=== PATIENT | female | born 1960 | race Hispanic/Latino ===

== ENCOUNTER 2020-04-30 08:26 | Outpatient (CLI) | payer BC, SELFPAY ==
--- NOTE | ~2020-04-30 | MM_ITS ---
EXAMINATION: MM screening [facility] BI w john HISTORY: Screening mammogram TECHNIQUE: Craniocaudal and mediolateral oblique 3-D tomosynthesis images were obtained and synthetic 2-D images were generated. CAD analysis was submitted and interpreted. COMPARISON: 07/24/2018, 11/04/2014, 08/07/2013 BREAST PARENCHYMAL COMPOSITION: The breasts are almost entirely fatty. FINDINGS: There is no evidence of suspicious mass, calcification, or architectural distortion to sugg est malignancy in either breast. There has been no suspicious interval change. IMPRESSION: 1. No mammographic evidence of malignancy. 2. Recommend routine screening mammography in one year. BI-RADS Category 1: Negative Reviewed, dictated and finalized at location A. H CUTTER PINION
== END 2020-04-30 08:27 | disposition home or self-care (01) ==
LOC: ANHIMG 08:29
PROVIDERS: PCP Emergency Medicine; Visit Provider Emergency Medicine
DX: Z12.31 Encounter for screening mammogram for malignant neoplasm of breast (principal)
CPT/HCPCS: 77063; 77067

== ENCOUNTER 2021-10-25 14:56 | Outpatient (CLI) | payer BC, SELFPAY ==
--- NOTE | ~2021-10-25 | US_ITS ---
US venous doppler LE RT DATE: 10/25/2021 15:26 INDICATION: Right leg pain TECHNIQUE: Real-time and color flow imaging and Doppler analysis COMPARISON: None FINDINGS: There is spontaneous and phasic flow and normal augmentation and color flow signal and norm al compression of the right common femoral and femoral veins. Intraluminal thrombus with incomplete compression of the right popliteal and peroneal veins. The post erior tibial veins are patent. Thrombus is identified in the soleus veins. The greater saphenous vein is patent. IMPRESSION: Thrombus is identified in the popliteal, peroneal and soleus veins Dr. Mancera telephoned the report to Jessica in Dr. Garcia' office on 10/25/2021 at 1530 hours. Reviewed, dictated and finalized at Location A. Reviewed, dictated and finalized at location A. IMPRESSION: Thrombus is identified in the popliteal, peroneal and soleus veins Dr. Mancera telephoned the report to Jessica Garcia' office on 10/25/2021 at 1530 hours.
== END 2021-10-25 14:57 | disposition home or self-care (01) ==
PROVIDERS: PCP Emergency Medicine; Visit Provider Emergency Medicine
DX: I82.451 Acute embolism and thrombosis of right peroneal vein (principal); I82.431 Acute embolism and thrombosis of right popliteal vein; I82.461 Acute embolism and thrombosis of right calf muscular vein
CPT/HCPCS: 93971

== ENCOUNTER 2021-11-07 08:15 | Outpatient (CLI) | payer BC, SELFPAY ==
--- NOTE | ~2021-11-07 | DEXA_ITS ---
Bone Density Report Name: ERASMO REYNOSO Age: 60 Sex: Female Ethnicity: Date of : 1960 Indication: postmenopausal; osteopenia; Referring Provider: FLORINDA BROOKS Study: Bone densitometry was performed. Exam Date: November 07, 2021 Accession number: [id number] Bone Density: Region BMD T-score Z-score Classification AP Spine(L1-L4) 0.871 -1.6 0.0 Osteopenia Femoral Neck (Left) 0.618 -2.1 -0.8 Osteopenia Total Hip (Left) 0.813 -1.1 -0.1 Osteopenia Femoral Neck (Right) 0.631 -2.0 -0.7 Osteopenia Total Hip (Right) 0.839 -0.8 0.1 Normal Total Hip Mean 0.826 -1.0 0.0 Normal World Health Organization criteria for BMD impression classify patients as: Normal (T-score at or above -1.0), Osteopenia (T-score between -1.0 and -2.5), or Osteoporosis (T-score at or below -2.5). 10-year Fracture Risk(1): Major Osteoporotic Fracture 5.5% Hip Fracture 0.7% Reported Risk Factors: [place] (), Neck BMD=0.618, BMI=32.0 (1) FRAX(R) Version 3.08. Fracture probability calculated for an untreated patient. Fracture probability may be lower if the patient has received treatment. Previous Exams: Region Exam Age BMD T-score BMD Change BMD Change Date g/cm2 vs Baseline vs Previous AP Spine (L1-L4) 11/07/2021 60 0.871 -1.6 -0.026 (-2.9%) -0.026 (-2.9%) 11/04/2014 53 0.897 -1.4 Total Hip(Left) 11/07/2021 60 0.813 -1.1 -0.119 (-12.7% -0.119 (-12.7% 11/04/2014 53 0.932 -0.1 Total Hip(Right) 11/07/2021 60 0.839 -0.8 -0.125 (-13.0% -0.125 (-13.0% 11/04/2014 53 0.964 0.2 *Denotes significance at 95% confidence level, LSC for AP Spine = 0.022 g/cm2, LSC for Total Hip = 0.027 g/cm2 Clinical Information Provided by Patient: Has used the following medications: Vitamin D Patient maximum height was 62 Menopause Age: 38 Onset of menses at age 10 Number of children 0 Impression: UNAPPROVED The patient has low bone mass, based on the Left Femoral Neck T-score. The patient has an estimated ten-year risk of hip fracture of 0.7% and an estimated ten-year risk of major fracture of 5.5%, based on the WHO FRAX algorithm. The BMD for the AP Spine (L1-L4) decreased, changing by -2.9% since the last DXA exam. The BMD for the Total Hip(Left) decreased, changing by -12.7% since the last DXA exam. The BMD for the Total Hip(Right) decreased, changing by -13.0% since the last DXA exam. Discussion: UNAPPROVED BONE DENSITY IS LOW
--- NOTE | ~2021-11-07 | MM_ITS ---
EXAMINATION: MM screening [facility] HISTORY: Screening TECHNIQUE: Craniocaudal and mediolateral oblique 3-D tomosynthesis images were obtained and synthetic 2-D images were generated. CAD analysis was submitted and interpreted. COMPARISON: Comparison to multiple prior studies sequentially, with oldest reviewed study dated 07/08. BREAST PARENCHYMAL COMPOSITION: The breasts are almost entirely fatty. FINDINGS: There is no evidence of suspicious mass, calcification, or architectural distortion to sugg est malignancy in either breast. There has been no suspicious interval change. IMPRESSION: 1. No mammographic evidence of malignancy. 2. Recommend routine screening mammography in one year. BI-RADS Category 1: Negative Reviewed, dictated and finalized at location A.
== END 2021-11-07 08:16 | disposition home or self-care (01) ==
LOC: ANHIMG 08:16
PROVIDERS: PCP Emergency Medicine; Visit Provider Student in an Organized Health Care Education/Training Program
DX: Z12.31 Encounter for screening mammogram for malignant neoplasm of breast (principal); Z78.0 Asymptomatic menopausal state; M85.88 Other specified disorders of bone density and structure, other site; M85.852 Other specified disorders of bone density and structure, left thigh; M85.851 Other specified disorders of bone density and structure, right thigh
CPT/HCPCS: 77063; 77067; 77080

== ENCOUNTER 2022-04-25 15:45 | Outpatient (CLI) | payer BC, SELFPAY ==
--- NOTE | ~2022-04-25 | US_ITS ---
EXAMINATION: US venous doppler LE RT DATE: 04/25/2022 16:26 INDICATION: I82.409 - Acute embolism and thrombosis of unspecified de... . TECHNIQUE: Grayscale images without and with compression and Doppler images of the right lower extrem ity veins were obtained. COMPARISON: 10/25/2021 FINDINGS: The right common femoral vein, profunda (deep) femoral vein, femoral vein, popliteal vein, peroneal v ein, posterior tibial veins, gastrocnemius vein, and greater saphenous vein are patent. IMPRESSION: 1. Patent right lower extremity veins. No evidence of deep venous thrombosis. Reviewed, dictated and finalized at location K. SKINNER
== END 2022-04-25 15:46 | disposition home or self-care (01) ==
PROVIDERS: PCP Emergency Medicine; Visit Provider Emergency Medicine
DX: I82.409 Acute embolism and thrombosis of unspecified deep veins of unspecified lower extremity (principal); M79.606 Pain in leg, unspecified; R60.9 Edema, unspecified
CPT/HCPCS: 93971

== ENCOUNTER 2022-12-07 07:53 | Outpatient (CLI) | payer BC, SELFPAY ==
--- NOTE | ~2022-12-07 | MM_ITS ---
EXAMINATION: MM screening [facility] HISTORY: Screening TECHNIQUE: Craniocaudal and mediolateral oblique 3-D tomosynthesis images were obtained and synthetic 2-D images were generated. CAD analysis was submitted and interpreted. COMPARISON: Comparison to multiple prior studies sequentially, with oldest reviewed study dated 08/07. BREAST PARENCHYMAL COMPOSITION: Breast composition is almost entirely fatty FINDINGS: There is no evidence of suspicious mass, calcification, or architectural distortion to sugg est malignancy in either breast. There has been no suspicious interval change. IMPRESSION: 1. No mammographic evidence of malignancy. 2. Recommend routine screening mammography in one year. BI-RADS Category 1: Negative Reviewed, dictated and finalized at location A.
== END 2022-12-07 07:54 | disposition home or self-care (01) ==
PROVIDERS: PCP Emergency Medicine; Visit Provider Emergency Medicine
DX: Z12.31 Encounter for screening mammogram for malignant neoplasm of breast (principal)
CPT/HCPCS: 77063; 77067

== ENCOUNTER 2023-02-21 11:57 | Outpatient (CLI) | payer BC, SELFPAY ==
--- NOTE | ~2023-02-21 | US_ITS ---
EXAMINATION:US venous doppler LE LT INDICATION:Left leg pain TECHNIQUE: Multiple grayscale, color flow and Doppler images of the left lower extremity deep venous systems were obtained and reviewed. COMPARISON:No prior studies for comparison. FINDINGS: The common femoral, superficial femoral and popliteal veins demonstrate normal respiratory variation, augmentation and compressibility. Color flow is also seen within the posterior tibial, pe roneal, greater saphenous and profunda veins. IMPRESSION: 1: No lower extremity deep venous thrombosis. Reviewed, dictated and finalized at location B.
== END 2023-02-21 11:58 | disposition home or self-care (01) ==
PROVIDERS: PCP Emergency Medicine; Visit Provider Emergency Medicine
DX: M62.89 Other specified disorders of muscle (principal)
CPT/HCPCS: 93971

== ENCOUNTER 2024-02-11 07:28 | Outpatient (CLI) | payer BC, SELFPAY ==
--- NOTE | ~2024-02-11 | MM_ITS ---
EXAMINATION: MM screening [facility] HISTORY: Screening TECHNIQUE: Craniocaudal and mediolateral oblique 3-D tomosynthesis images were obtained and synthetic 2-D images were generated. CAD analysis was submitted and interpreted. COMPARISON: Comparison to multiple prior studies sequentially, with oldest reviewed study dated 11/04. BREAST PARENCHYMAL COMPOSITION: Not Dense: The breasts are almost entirely fatty. FINDINGS: There is no evidence of suspicious mass, calcification, or architectural distortion to sugg est malignancy in either breast. There has been no suspicious interval change. IMPRESSION: 1. No mammographic evidence of malignancy. 2. Recommend routine screening mammography in one year. BI-RADS Category 1: Negative Reviewed, dictated and finalized at location B.
== END 2024-02-11 07:29 | disposition home or self-care (01) ==
PROVIDERS: PCP Emergency Medicine; Visit Provider Nurse Practitioner Family
DX: Z12.31 Encounter for screening mammogram for malignant neoplasm of breast (principal)
CPT/HCPCS: 77063; 77067

== ENCOUNTER 2024-02-25 09:20 | Outpatient (CLI) | payer BC, SELFPAY ==
--- NOTE | ~2024-02-25 | MR_ITS ---
MRI of the right ankle Clinical history: History tibial tendon dysfunction Technique: Coronal proton-density and proton-density fat-sat images, axial proton-density and proton- density fat-sat images, and sagittal proton-density and proton-density fat-sat images were acquired. Findings: Syndesmotic ligaments are intact. Anterior and posterior talofibular ligaments, and calcane ofibular ligament are intact. Deltoid ligament intact. There is advanced hypertrophic partial tearing of the tibialis posterior tendon, with thickening, inc reased signal, and partial tearing. Flexor hallucis longus and flexor digitorum longus tendons are in tact. Peroneal tendons, anterior extensor tendons, and Achilles tendon are intact. There is orthopedic hardware at the anterior subtalar facet region. Probable focal high-grade chondro malacia at the lateral corner of the talar dome with developing osteochondral lesion in this region. There is focal subchondral cystic change in the medial malleolus with mild amorphous marrow edema. Po ssible pes planus deformity. Plantar fascia intact. No soft tissue mass or fluid collection evident.. Impression: Severe hypertrophic type partial tearing of the tibial posterior tendon, as detailed above. Possible pes planus deformity. Correlate clinically. Orthopedic hardware at the anterior subtalar facet region. Correlate with surgical history. Developing osteochondral lesion of the lateral corner of the talar dome. Reviewed, dictated and finalized at [facility]. POT OPERATOR Impression: Severe hypertrophic type partial tearing of the tibial posterior tendon, as det rachana above. Possible pes planus deformity. Correlate clinically. Orthopedic hardware at the anterior subtalar facet region. Correlate with surgi rosita history. Developing osteochondral lesion of the lateral corner of the talar dome.
== END 2024-02-25 09:21 | disposition home or self-care (01) ==
PROVIDERS: PCP Emergency Medicine; Visit Provider Podiatrist Foot & Ankle Surgery
DX: R68.89 Other general symptoms and signs (principal); R93.6 Abnormal findings on diagnostic imaging of limbs
CPT/HCPCS: 73721

== ENCOUNTER 2024-03-17 09:05 | Outpatient (CLI) | payer BC, SELFPAY ==
--- NOTE | ~2024-03-17 | DEXA_ITS ---
Bone Density Report Name: ERASMO REYNOSO Age: 63 Sex: Female Ethnicity: Date of : 1960 Indication: osteopenia; Referring Provider: NAHOMI NORMAN Study: Bone densitometry was performed. Exam Date: March 17, 2024 Accession number: [id number] Bone Density: Region BMD T-score Z-score Classification AP Spine(L1-L4) 0.746 -2.7 -1.0 Osteoporosis Femoral Neck (Left) 0.561 -2.6 -1.2 Osteoporosis Total Hip (Left) 0.770 -1.4 -0.3 Osteopenia Femoral Neck (Right) 0.595 -2.3 -0.9 Osteopenia Total Hip (Right) 0.815 -1.0 0.0 Normal Total Hip Mean 0.793 -1.2 -0.2 Osteopenia World Health Organization criteria for BMD impression classify patients as: Normal (T-score at or above -1.0), Osteopenia (T-score between -1.0 and -2.5), or Osteoporosis (T-score at or below -2.5). 10-year Fracture Risk: FRAX not reported because: Some T-score for Spine Total or Hip Total or Femoral Neck at or below -2.5 Previous Exams: Region Exam Age BMD T-score BMD Change BMD Change Date g/cm2 vs Baseline vs Previous AP Spine (L1-L4) 03/17/2024 63 0.746 -2.7 -0.151 (-16.8% -0.125 (-14.4% 11/07/2021 60 0.871 -1.6 -0.026 (-2.9%) -0.026 (-2.9%) 11/04/2014 53 0.897 -1.4 Total Hip(Left) 03/17/2024 63 0.770 -1.4 -0.161 (-17.3% -0.042 (-5.2%) 11/07/2021 60 0.813 -1.1 -0.119 (-12.7% -0.119 (-12.7% 11/04/2014 53 0.932 -0.1 Total Hip(Right) 03/17/2024 63 0.815 -1.0 -0.149 (-15.5% -0.024 (-2.8%) 11/07/2021 60 0.839 -0.8 -0.125 (-13.0% -0.125 (-13.0% 11/04/2014 53 0.964 0.2 *Denotes significance at 95% confidence level, LSC for AP Spine = 0.022 g/cm2, LSC for Total Hip = 0.027 g/cm2 Clinical Information Provided by Patient: Patient maximum height was 61.5 Menopause Age: 38 Does not regularly consume dairy products Drinks caffeinated beverages Onset of menses at age 10 Number of children 0 Impression: The patient has osteoporosis, based on the Total Spine T-score. The BMD for the AP Spine (L1-L4) decreased, changing by -14.4% since the last DXA exam. The BMD for the Total Hip(Left) decreased, changing by -5.2% since the last DXA exam. Discussion: INCREASED RISK OF FRACTURE. BONE DENSITY IS UNDESIRABLY LOW AT ONE OR MORE SKELETAL SITES, CONSISTENT WITH POSTMENOPAUSAL OSTEOPOROSIS. This patient's lowest T-score meets the World Health Organization's (WHO) criteria for osteoporosis at one or more sites (T-score -2.5 or below). In untreated patients, the risk of osteoporotic fracture increases approximately two-fold for each 1.0 SD decrease in T-score. Low bone density is not the only risk factor for fracture; also consider factors such as patient's age, frailty or poor health, risk of falling, risk of injury, previous osteoporotic fracture, family history of osteoporosis, cigarette smoking, low body weight, etc. Not everyone with low bone mineral density has osteoporosis; osteomalacia and other metabolic bone disorders should also be considered. Patients who have osteoporosis should be evaluated for specific diseases and conditions (secondary causes) that may cause or contribute to bone loss. The [place] Association of Clinical Endocrinologists (AACE) and National Osteoporosis Foundation (NOF) recommend pharmacologic intervention for all postmenopausal women whose T-score is in this range. The patient should follow a healthful lifestyle (good nutrition with adequate calcium and vitamin D, and appropriate weight-bearing exercise). Follow-Up: Consider a repeat BMD and Vertebral Fracture Assessment (VFA) exam in 2 years or sooner if medically necessary, to reassess this patient's status. Reported by: DAGOBERTO on 03/17/2024 9:36:00 AM. Reviewed, dictated and finalized at location AOctavia NICHOLS
== END 2024-03-17 09:06 | disposition home or self-care (01) ==
LOC: ANHIMG 09:07
PROVIDERS: PCP Emergency Medicine; Visit Provider Nurse Practitioner Family
DX: M81.0 Age-related osteoporosis without current pathological fracture (principal); M85.89 Other specified disorders of bone density and structure, multiple sites; Z78.0 Asymptomatic menopausal state
CPT/HCPCS: 77080

== ENCOUNTER 2024-10-03 10:39 | Outpatient (CLI) | payer BC, SELFPAY ==
--- NOTE | 2024-10-03 10:47 | ECG_ITS ---
Test Date: 2024-10-03 11:04:37 Measurements Intervals [place] Rate: 78 P: 43 AR: 154 QRS: 3 QRSD: 90 T: 37 QT: 372 QTc: 425 Interpretive Statements SINUS RHYTHM LOW QRS VOLTAGE IN PRECORDIAL LEADS BASELINE ARTIFACT- I, II, III, AVR, AVL, AVF, V1 BORDERLINE ECG No previous ECG available for comparison Electronically Signed On 10-03-2024 11:15:38 CDT by Genaro Nice D.O.
--- OUTSIDE RECORDS SUMMARY | 2024-10-03 10:53 | XMS_ITS | Encounter Summary ---
Author Organization [facility] Address [address] [place] [address] Care Team Providers Care Child And Adolescent Therapist Name Role Phone Altaf Garcia MD Primary Care Provider [phone] Encounter Details Date Type Department Care Team (Late st Contact Info) Description 04/26/2022 Ophth Exam [facility] [address] [place] [id number] Landen Helms MD [address] [facility] [address] [place] [address] Social History Tobacco Use Types Packs/Day Years Used Date Smoking Tobacco: Never Assessed Comments Unknown Sex and Gender Information Value Date Recorded Sex Assigned at Female 05/05/2022 2:35 PM TOOL MACHINIST Legal Sex Female 4:44 AM CDT Gender Identity Female 05/05/2022 2:35 PM TOOL MACHINIST Sexual Orientation Straight 05/05/2022 2: 35 PM TOOL MACHINIST documented as of this encounter Plan of Treatment Not on file documented as of this encounter Visit Diagnoses Not on filedocumented in this encounter Care Teams Child And Adolescent Therapist Relationship Specialty Start Date End Date Altaf Garcia MD [address] [place] [address] [address] [place] [address] PCP - General 09/02/18 documented as of this encounter
--- OUTSIDE RECORDS SUMMARY | 2024-10-03 10:53 | XMS_ITS | Data Portability ---
Author Organization [facility] Aff[employer], [facility] Address [address] [place] [id number] Care Team Providers Care Auto Dealer Name Role Phone CYN ESCOBEDO Administrative Accountant Assessment No assessment recorded. Plan of Treatment Reminders Order Date Submit Date Provider Last Modified By Organization Details Last Modified Time Details Appointments None recorded. Lab None recorded. Referral None recorded. Procedures None recorded. Surgeries None recorded. Imaging None recorded. Medication Orders gabapentin 100 mg capsule [address] [facility] [place], [address], 3 12:32:44 gabapentin 300 mg capsule [address] [facility] [address] [place], [address], 3 07:59:01 gabapentin 100 mg capsule [address] [facility] [address] [place], [address], 3 11:25:09 gabapentin 300 mg capsule [address] [facility] [address] [place], [address], 3 11:25:09 gabapentin 300 mg capsule [address] [facility] [address] [place], [address], 3 09:10:08 gabapentin 100 mg capsule 2022 023 [email or web address] [address] [place], [address], 3 09:10:08 Patient TargetsNo targets recorded. Patient InstructionsNo instructions recorded. Reason for Referral None Reported. Problems No Known Problems Procedures Surgical History Date Name Laterality Status Provider Name and Address Organization Details Recorded Time 06/09/19 23 insertion of orbital floor implant completed Lily Sonia BAUNAT [facility], [facility] 06/28/2022 16:26:58 10/14/19 22 ureteroscopic ureteric stent procedure completed Lily Sonia BAUNAT [facility] 06/28/2022 16:25:37 08/22/19 18 operation on gallbladder completed Lily Sonia BAUNAT [facility] 06/28/2022 16:21:55 07/23/19 14 MRI guided ablation of uterine fibroid completed Lily Sonia BAUNAT [facility] 06/28/2022 16:20:48 07/23/19 10 Colonoscopy completed Lily Sonia BAUNAT [facility] 06/28/2022 16:20:18 07/23/19 08 hammer toe operation completed Lily Sonia BAUNAT [facility] 06/28/2022 16:19:59 07/23/19 07 bunionectomy with soft tissue correction completed Lily Sonia BAUNAT [facility] 06/28/2022 16:19:20 11/21/18 76 extraction of wisdom tooth completed Lily Sonia BAUNAT [facility] 06/28/2022 16:18:30 11/21/18 75 tonsillectomy completed Liyl Sonia BAUNAT [facility] 06/28/2022 16:17:44 Imaging Results None recorded. Procedure Notes None recorded. Medical Equipment None Reported. Allergies No known drug allergies Medications Name Sig Start Date Stop Date Status Note LastModified by Organization Details LastModified Time tolterodine ER 2 mg capsule,ext ended release 24 hr TAKE 1 CAPSULE BY MOUTH ONCE DAILY 06/28 completed Not Available Not Available Not Available amoxicillin 500 mg capsule TAKE 1 CAPSULE BY MOUTH THREE TIMES DAILY UNTIL GONE active Not Available Not Available No t Available metformin 500 mg tablet TAKE 1 TABLET BY MOUTH TWICE DAILY 06/28 completed Not Available Not Available Not Available cefuroxime axetil 250 mg tablet TAKE 1 TABLET BY MOUTH TWICE DAILY 06/28 completed Not Available Not Available Not Available hydrocodone 5 mg-acetamin ophen 325 mg tablet active Not Available Not Available No t Available acetaminoph en 300 mg-codeine 30 mg tablet TAKE 1 TABLET BY MOUTH EVERY 4 HOURS NEEDED FOR PAIN 06/28 completed Not Available Not Available Not Available amlodipine 10 mg tablet TAKE 1 TABLET BY MOUTH ONCE DAILY active Not Available Not Available No t Available cephalexin 500 mg capsule TAKE 1 CAPSULE BY MOUTH 4 TIMES DAILY FOR 7 DAYS 06/28 completed Not Available Not Available Not Available erythromyci n 5 mg/gram (0.5 %) eye ointment INSTILL INTO RIGHT EYE FOUR TIMES DAILY. 06/28 completed Not Available Not Available Not Available ibuprofen 400 mg tablet TAKE 1 TABLET BY MOUTH EVERY 8 HOURS NEEDED FOR PAIN 06/28 completed Not Available Not Available Not Available gabapentin 300 mg capsule TAKE 1 CAPSULE BY MOUTH ONCE DAILY AT BEDTIME active Not Available Not Available No t Available gabapentin 100 mg capsule active Not Available Not Available Not Available cefuroxime axetil 500 mg tablet TAKE 1 TABLET BY MOUTH TWICE DAILY FOR SEVEN DAYS 06/28 completed Not Available Not Available Not Available methylpredn isolone 4 mg tablets in a dose pack TAKE BY MOUTH DIRECTED ON INSIDE OF PACKAGE active Not Available Not Available No t Available ondansetron 4 mg disintegrat ing tablet DISSOLVE 1 TABLET IN MOUTH EVERY 8 HOURS 06/28 completed Not Available Not Available Not Available metformin ER 500 mg tablet,exte nded release 24 hr TAKE 1 TABLET BY MOUTH ONCE DAILY active Not Available Not Available No t Available ezetimibe 10 mg tablet TAKE 1 TABLET BY MOUTH ONCE DAILY active Not Available Not Available No t Available acetaminoph en 500 mg active Not Available Not Available Not Available Januvia 100 mg tablet TAKE 1 TABLET BY MOUTH ONCE DAILY 06/28 completed Not Available Not Available Not Available hydrochloro thiazide 12.5 mg tablet TAKE 1 TABLET BY MOUTH ONCE DAILY active Not Available Not Available No t Available Eliquis 5 mg tablet TAKE 1 TABLET BY MOUTH TWICE DAILY active Not Available Not Available No t Available Rybelsus 7 mg tablet TAKE 1 TABLET BY MOUTH ONCE DAILY active Not Available Not Available No t Available Vitals Date Recorded Body height Body mass index (BMI) Body weight Heart rate Systolic blood pressure Diastolic blood pressure Provider Name and Address Organization Details Last Updated DateTime 4 154.94 cm 31.2 kg/m2 34235.7 4 g 85 /min 132 mm[Hg] 81 mm[Hg] Eveline Pool [facility], [facility] 4 11:47:10 Date Recorded Heart rate Systolic blood pressure Diastolic blood pressure Provider Name and Address Organization Details Last Updated DateTime 07/28/2022 71 /min 124 mm[Hg] 78 mm[Hg] Tessy Mishra [facility], [facility] 07/28/2022 09:46:22 Date Recorded Body height Provider Name an d Address Organization Details Last Updated DateTime 07/28/2022 154.94 [facility] 07/28/2022 08:39:42 Date Recorded Body height Heart rate Systolic blood pressure Diastolic blood pressure Provider Name and Address Organization Details Last Updated DateTime 09/21/2022 154.94 cm 80 /min 124 mm[Hg] 82 mm[Hg] Lily Scott [facility], [facility] 09/21/2022 09:06:15 Date Recorded Body height Body mass index (BMI) Body weight Heart rate Systolic blood pressure Diastolic blood pressure Provider Name and Address Organization Details Last Updated DateTime 3 154.94 cm 31.2 kg/m2 38683.7 4 g 76 /min 128 mm[Hg] 78 mm[Hg] Tessy Mishra [facility], [facility] 3 10:08:46 Date Recorded Body height Body mass index (BMI) Body weight Heart rate Systolic blood pressure Diastolic blood pressure Provider Name and Address Organization Details Last Updated DateTime 3 154.94 cm 31.2 kg/m2 62352.7 4 g 72 /min 128 mm[Hg] 82 mm[Hg] Jonelle Colin [facility], [facility] 3 09:31:36 Social History Question Answer Notes LastModified by Organizat ion Details LastModified Time Tobacco Smoking Status Never Smoker Lily everett [facility], [facility] 06/28/2022 16:15:06 What Is The Highest Grade Or Level Of School You Have Completed Or The Highest Degree You Have Received? [id number] Information not available 06/28/2022 What Is Your Relationship Status? Information not available 06/28/2022 Sex: Unknown Functional Status Question Answer Note LastModified by Organization D etails LastModified Time What is your level of alcohol consumption? None Information not available 06/28/2022 Are you currently employed? Yes Information not available 06/28/2022 What is your occupation? TEACHER Information not available 06/28/2022 Mental Status None recorded. Family History Relationship Description Onset Age of this Age Resolved Age Notes LastModified by Organization Details LastModified Time Unspecified Relation Diabetes mellitus Not available 2022 16:12:43 Unspecified Relation Hypertensive disorder Not available 2022 16:13:00 Father Deep venous thrombosis Not available 06/28 16:13:48 Medical History Condition Response Other Cancer N HIV or AIDS N Coronary Artery Disease N Gout N Kidney Stones N Hyperthyroidism N Breast Cancer N Hernia N Head Trauma/Injury Y Lung Cancer N Hypothyroidism N Lung Disease N Depression N Blood Clots N COPD N Pacemaker N Parkinson's N Anxiety Disorder N Multiple Sprains N Arthritis N Alcohol / Substance Abuse N Kidney Cancer N Cancer N Stroke N Melanoma N Neck Injury N Leg or Foot Ulcers N High Cholesterol N Skin Cancer N Liver Disease N Rheumatoid Arthritis N Headaches N Fibromyalgia N Concussion Y Kidney Disease N Heart Problems N Scoliosis N Chronic use of Pain Medication N Prostate Cancer N Migraines N Thyroid Problems N Alzheimers N Autoimmune Disorder N Anemia N Multiple Sclerosis N Tendon Tear N Ulcers N Heart Attack ([place]) N Osteopenia N Diabetes Y Bleeding Disorder N Seizures/Epilepsy N Cardiac Stent N Tuberculosis N A-FIB N Lymphoma N Urinary Tract Infection N Back Problems N Diverticulitis N Asthma N Lupus N Peripheral Vascular Disease N Sleep Apnea N Sleep Disorder N GERD/Reflux N Hepatitis N Aneurysm N Thyroid Cancer N Heart Disease N Pulmonary Embolism N Hypertension Y Osteoporosis N Gynecological HistoryNo gynecological history recorded. Obstetrics History GPAL:G 0 P 0 0 0 0 Past Encounters Encounter ID Performer Location Encounter Start Date Encounter Closed Date Diagnosis/Indication Diagnosis SNOMED-CT Code Diagnosis ICD10 Code Diagnosis Note [id number] Julio Rodriguez, DO [facility] [address] [place] [address] 06/28/2022 14:08:26 06/29/2022 09:06:00 Concussion with no loss of consciousness 66781408 S06.0X0A I reviewed the records, evaluated the patient and within a reasonable degree of medical certainty I do believe that the patient's current symptoms would be related to her reported work-relat ed injury. I do believe based on the patient's history and evaluation that she did likely sustain a concussion without a loss of consciousn ess at the time of her work injury. However I do believe that the effects of this are relatively minimal overall. The visual complaints that she is susie salas would be more related to the direct injury to the orbit and the inferior rectus as well as the facial trauma itself. The nerve pain that she is susie salas would be more consistent with this. I do believe that medication can help with this type of pain. The gabapentin that she is on I will alter to 100 mg 3 times daily and 300 mg at bedtime. This should give her more consistent blood level and coverage for her pain complaint. I discussed this with the patient today and she expresses understand ing of that plan. I will hold off on any additional therapy for now. Certainly I can assist with therapy referrals if necessary especially from the visual perspectiv e. I will hold off until she sees ophthalmol talia and if they would like my assistance in this area I am happy to help. Any restrictio ns should come per her other providers. I did fill out a work status today stating such. I will see her back in 4 weeks to reevaluate . [id number] Julio Rodriguez, DO [facility] [address] [place] [address] 07/28/2022 08:27:45 07/28/2022 12:08:42 Concussion with no loss of consciousness [id number] S06.0X0D I discussed with the patient and we will continue the gabapentin at its current level for her pain. In general she is doing very well and should continue to treatment under the direction of other treating physicians . With regard to the cranial nerve I injury she is having some function of this and typically that does lead to a better prognosis overall. There is no definitive treatment. We did discuss this today. Additional ly, we discussed her irritabili ty and the patient herself feels that she is okay with this and does not require additional treatment for that at this time. I do feel she will do better when she gets back into her work environmen t. From my perspectiv e I do not have any restrictio ns I did fill out a work status today. I will see her back in 4 to 6 weeks. I did spend over 30 minutes total in evaluation of the patient, review of records and results, and/or the intake process. [id number] Julio Rodriguez, DO [facility] [address] [place] [address] 09/21/2022 08:46:47 09/27/2022 14:40:23 Concussion with no loss of consciousness [id number] S06.0X0D I discussed with the patient and we will continue her current dosing of the gabapentin . No other changes will be made today. She has made good progress overall. I would anticipate when I see her back being able to begin to titrate the medication . I do not feel that this will be a long-term medication . I will see her back in 3 months time. She can continue regular work duties. I did fill out a work status today stating such. [id number] Julio Rodriguez DO [facility] [address] [facility] [address] [place] [address] 11/27/2022 08:42:47 11/28/2022 10:07:23 Concussion with no loss of consciousness [id number] S06.0X0D I discussed with the patient and it does sound as though the gabapentin was removed prematurel y. We will continue it at its current dose for now but we did discuss that I can certainly increase this further if necessary. Will hold off on that and just continue the previous dose until it gets back up to his previous level. She can continue regular work duties from my perspectiv e and I will see her back in 4 to 6 weeks to reevaluate . [id number] Julio Rodriguez DO [facility] [address] [place] [address] 01/05/2023 08:58:25 01/09/2023 14:26:26 Concussion with no loss of consciousness [id number] S06.0X0D I discussed with the patient today and we will continue the gabapentin at its current dosage. I will not make any additional changes for now. We did have a long discussion today regarding long-term prognosis and the progress she has made so far. The patient expresses understand ing of this. I will continue her with regular work duties and I did fill out a work status today stating such. I did spend over 30 minutes total in evaluation of the patient, review of records and results, and/or the intake process. [id number] Julio Rodriguez, DO [facility] [address] [place] [address] 06/08/2023 11:11:13 06/11/2023 13:57:05 Concussion with no loss of consciousness [id number] S06.0X0D I discussed with the patient and I feel from her head injury component of her work-relat ed injury she is at maximum medical improvemen t with work duties. She still has mild head itching and occasional pain but is not even requiring the gabapentin regularly this point. I do not anticipate additional evaluation or treatment being necessary. The patient is approachin g her baseline. She can continue regular work duties and I did fill a work status today. I did spend over 30 minutes total in evaluation of the patient, review of records and results, and/or the intake process. Health Concerns Section Related Observation LastModified by Organization Detai ls LastModified Time None Recorded Concern Status LastModified by Organization Details LastModified Time None Recorded Advance Directives Directive None Recorded Payers Insurance Date Sequence Insurance Name Policy Number Policy Potter Covered Member ID Potter Member ID Guarantor Name 06/23/2022 AFSHIN Herrera Notes Date Note Type Note Provider Name and Address Organization Details Recorded Time 07/28/2022 text/html Patient is a 61-year-old female who is known to me having been followed for her work injury. Since last time I have seen her she has been communicating with us and we have titrated her gabapentin to a dose of 100 in the morning 200 and midday 100 mg at dinnertime and 300 mg at bedtime. This seems to control the nerve pain in her head fairly well. She has been following with ophthalmology postoperatively and they feel she is on track. She is seeing double a lot less. They have started letting her drive some. She is tentatively to go back to work on August 14. She does note that she is irritable at times as well as having some difficulty with [place] [address], [place], [address], [employer] 07/28/2022 11:23:16 09/21/2022 text/html Patient is a 61-year-old female who is known to me having been followed for her work injury. Since last time I have seen her she has been able to return to work duties. She states she struggled a bit with the return but once she got into the work she felt that she actually did pretty well. She denies any other new problems or concerns today. She has been able to titrate her dose of gabapentin but still notices that if she misses doses she says increased pain. She is now currently taking gabapentin 100 mg in the morning 200 and midday, 100 in the evening and 300 at bedtime. This is down from her dose of 900 mg total. She states that at this dose her pain [place] [address], [place], [address], [employer] 09/25/2022 21:23:46 11/27/2022 text/html Patient is a 61-year-old female who is known to me having been followed for her work injury. Since last time I have seen her she states that she feels that things have fallen apart somewhat. She is very frustrated as her head pain did seem to worsen and she has the nerve pain behind her right eye at the same time this seems to cause much of her symptoms to become exacerbated. When I discussed this with her she had been trying to taper off of the gabapentin and had missed multiple doses of this. She has subsequently increase this again back to her previous dose and it seems to be helping a bit that she has only been on this for less than a week at this point. Otherwise, she is frustrated as she felt so much better just recently. No other [place] [address], [place], [address], [employer], [employer] 11/27/2022 17:15:52 01/05/2023 text/html Patient is a 62-year-old female who is known to me having been followed for her work injury. Since last time I have seen her she feels her pain is fairly well controlled with the gabapentin at its current doses. She takes 100 mg in the morning and midday and then 300 mg at bedtime. She has missed a few doses and noted that her pain worsened. In general she has some frustration that she is not completely better but it she is noticing improvement in most of her symptoms. She still has quite a bit of light and noise sensitivity as well as fatigue and her memory is not at her baseline level. As she does more with her work this seems [place] [address], [place], [address], [employer], [employer] 01/06/2023 11:05:02 06/08/2023 text/html patient is a 62-year-old female who is known to me having been followed for her work-related injury. Since last time I have seen her she has only been intermittently taking the gabapentin. She is noting ongoing improvement in her symptoms. She still has some itching and occasional pain in her head. She feels that a lot of her symptoms now are linked to being overwhelmed in her work environment. She has trouble with her sleep due to the work situation and sometimes with head itching. No other new [place] [address], [place], [address], [employer], [employer] 10/08/2023 16:10:06 OBGyn Episode No OBEpisode recorded.
--- OUTSIDE RECORDS SUMMARY | 2024-10-03 10:53 | XMS_ITS | Clinical Summary ---
Author Organization [facility] Address [address] [place] [address] Care Team Providers Care Overhead Irrigator Name Role Phone Altaf Garcia MD Primary Care Provide r Allergies No known active allergies Medications metFORMIN XR (GLUCOPHAGE XR) 500 mg 24 hr tablet Take 1 tablet (500 mg total) by mouth daily Active semaglutide (Ozempic) 0.25 mg or 0.5 mg (2 mg/3 mL) pen injector injection Inject under the skin Active acetaminophen (OFIRMEV) injection 50 mL (500 mg total) 10/03/19 25 Discontinu ed(Therapy completed) mirabegron ER (MYRBETRIQ) 25 mg tablet extended release 24 hr Take 1 tablet (25 mg total) by mouth 10/03/19 25 Discontinu ed(Therapy completed) Hospital, Clinic, or Other Facility Administered Medication Ordered Dose Route Frequency Start Date End Date Status lidocaine (XYLOCAINE) 10 mg/mL (1 %) injection 1 mLIndications:Admini stration of Local Anesthesia 1 mL One-Time Injection 10/02/2024 10/02/2024 Ended lidocaine (XYLOCAINE) 10 mg/mL (1 %) injection 1 mLIndications:Admini stration of Local Anesthesia 1 mL One-Time Injection 10/02/2024 10/02/2024 Ended triamcinolone (KENALOG) 40 mg/mL injection 2.5 mgIndications:Right hand pain 2.5 mg One-Time Injection 10/02/2024 10/02/2024 Ended triamcinolone (KENALOG) 40 mg/mL injection 5 mgIndications:Right hand pain 5 mg One-Time Injection 10/02/2024 10/02/2024 Ended Active Problems No known active problems Encounters Date Type Department Care Team Description 10/02/2024 8:00 AM CDT Office Visit [facility] Hand Surgery [address] [place] [id number] Tali Shelley PA Right hand pain (Primary Dx) 10/02/2024 7:57 AM CDT - 10/02/2024 11:59 PM CDT Hospital Encounter [facility] [place] [address] Right hand pain Discharge Disposition: Discharge to home or self care from Last 3 Months Social History Tobacco Use Types Packs/Day Years Used Date Smoking Tobacco: Never Tobacco Cessation:Counseling Given: Not Answered Comments Unknown Sex and Gender Information Value Date Recorded Sex Assigned at Not on file Legal Sex Female 3:33 PM HEAD GRINDER Gender Identity Female 11/15/2022 2:51 PM CDT Sexual Orientation Choose not to disclose 2022 2:52 PM CDT Obstetrics History Last Filed Vital Signs Vital Sign Reading Time Taken Comments Blood Pressure 175/95 02/05/2019 7:54 AM CDT Pulse 75 02/05/2019 7:54 AM CDT Temperature 36.9 C (98.4 F) 02/05/2019 7:54 AM CDT Respiratory Rate - - Oxygen Saturation 100% 02/05/2019 7:54 AM CDT Inhaled Oxygen Concentration - - Weight 85.3 kg (188 lb) 05/08/2023 2:53 PM HEAD GRINDER Height 157.5 cm (5' 2) 05/08/2023 2:53 PM HEAD GRINDER Body Mass Index 34.39 05/08/2023 2:53 PM HEAD GRINDER Plan of Treatment Health Maintenance Due Date Last Done Comments Breast Cancer Screening-Mammogram 1960 Cervical Cancer Screening 1958 Colon Cancer Screening-Colonoscopy 1958 Depression Screening 1958 Fall Risk Assessment 1958 Hepatitis C Screening 1958 Osteoporosis Screening-Bone Density Scan 1958 Hepatitis B Screening 1976 Pneumococcal vaccine 65+ (1 of 1 - PCV) 2008 Zoster Vaccine (1 of 2) 2008 Well Visit 65+ 12/01/2023 Covid-19 Vaccine ( season) 2023 02/20/2021, 07/09/2020, 06/19/2020 Influenza Vaccine (Season Ended) 2024 DTaP/Tdap/Td Vaccine (2 - Td or Tdap) 04/26/203207/2022 Procedures Procedure Name Priority Date/Time Associated Diagnosis Comments SMALL JOINT ARTHROCENTESIS Routine 10/02/2024 8:00 AM CDT Right hand pain SMALL JOINT ARTHROCENTESIS Routine 10/02/2024 8:00 AM CDT Right hand pain from Last 3 Months Results * Small Joint (Foot, Fingers, Toes) Injection: R ring PIP (10/02/2024 8:00 AM CDT) Narrative Tali Shelley PA - 10/02/2024 8:00 AM CDT Tali Shelley PA 10/02/2024 1:04 PM Small Joint (Foot, Fingers, Toes) Injection: R ring PIP Performed by: Tali Shelley PA Authorized by: Tali Shelley PA Small Joint Injection/Aspiration: Consent Given by: Patient Verbal consent obtained?: Yes Written consent obtained?: No Supporting Documentation: Indications: Pain Procedure Details: Location: Ring finger Site: R ring PIP Prep: patient was prepped and draped in usual sterile fashion Needle Size: 27 G Approach: Dorsal Ultrasound guidance: No Medications: 1 mL lidocaine 10 mg/mL (1 %); 5 mg triamcinolone 40 mg/mL Patient tolerance: Patient tolerated the procedure well with no immediate complications Tali LYNCH IN CLINIC/BEDSIDE ORDERABLES F inal Result * Small Joint (Foot, Fingers, Toes) Injection: R long PIP (10/02/2024 8:00 AM CDT) Narrative Tali Shelley PA - 10/02/2024 8:00 AM CDT Tali Shelley PA 10/02/2024 1:04 PM Small Joint (Foot, Fingers, Toes) Injection: R long PIP Performed by: Tali Shelley PA Authorized by: Tali Shelley PA Small Joint Injection/Aspiration: Consent Given by: Patient Verbal consent obtained?: Yes Written consent obtained?: No Supporting Documentation: Indications: Pain Procedure Details: Location: Long finger Site: R long PIP Prep: patient was prepped and draped in usual sterile fashion Needle Size: 27 G Approach: Dorsal Ultrasound guidance: No Medications: 1 mL lidocaine 10 mg/mL (1 %); 2.5 mg triamcinolone 40 mg/mL Patient tolerance: Patient tolerated the procedure well with no immediate complications Tali LYNCH IN CLINIC/BEDSIDE ORDERABLES F inal Result from Last 3 Months Insurance [employer] ACCESS CHOICE [employer] ACCESS CHOICE WORKERS COMPENSATION GENERIC Member Subscriber Plan / Payer ( fective 2022-Present) Name:Kyle Herreramary Ponce Relation to Subscriber:Employee Name:ERASMO Ponce ANGELES (Home) Address: [address] [place] [address] Payer ID:[id number] Type:WORKERS COMPENSATION Address: [place] [id number] [address] ACCESS CHOICE Care Teams Overhead Irrigator Relationship Specialty Start Date End Date Altaf Garcia MD [address] [place] [address] PCP - General 12/20/18
--- OUTSIDE RECORDS SUMMARY | 2024-10-03 10:53 | XMS_ITS | Referral Summary ---
Author Organization [facility] Address [address] [place] [address] Care Team Providers Care Dock Manager Name Role Phone Altaf Garcia MD Primary Care Provide r Encounters Date Type Department Care Team Description 10/02/2024 7:57 AM CDT - 10/02/2024 11:59 PM CDT Hospital Encounter [facility] Di[facility] Imaging [address] [place] [address] Right hand pain Discharge Disposition: Discharge to home or self care 10/02/2024 8:00 AM CDT Office Visit [facility] Hand Surgery [address] [place] [address] [address] [place] [address] Tali Shelley PA Right hand pain (Primary Dx) from Last 3 Months Allergies No known active allergies Medications metFORMIN [...] Ended Active Problems No known active problems Social History Tobacco Use Types Packs/Day Years Used Date Smoking Tobacco: Never Tobacco Cessation:Counseling Given: Not Answered Comments Unknown Sex and Gender Information Value Date Recorded Sex Assigned at Not on file Legal Sex Female 3:33 PM FARM ADVISOR Gender Identity Female 11/15/2022 2:51 PM CDT Sexual Orientation Choose not to disclose 2022 2:52 PM CDT Last Filed Vital Signs Vital Sign Reading Time Taken Comments Blood Pressure 175/95 02/05/2019 7:54 AM CDT Pulse 75 02/05/2019 7:54 AM CDT Temperature 36.9 C (98.4 F) 02/05/2019 7:54 AM CDT Respiratory Rate - - Oxygen Saturation 100% 02/05/2019 7:54 AM CDT Inhaled Oxygen Concentration - - Weight 85.3 kg (188 lb) 05/08/2023 2:53 PM FARM ADVISOR Height 157.5 cm (5' 2) 05/08/2023 2:53 PM FARM ADVISOR Body Mass Index 34.39 05/08/2023 2:53 PM FARM ADVISOR Plan of Treatment Not on file Procedures Procedure Name Priority Date/Time Associated Diagnosis [...] inal Result from Last 3 Months Insurance ANTHEM ACCESS CHOICE ANTHEM ACCESS CHOICE WORKERS COMPENSATION GENERIC [facility] ACCESS CHOICE Care Teams Dock Manager Relationship Specialty Start Date End Date Altaf Garcia MD [address] [place] [address] PCP - General 12/20/18
--- OUTSIDE RECORDS SUMMARY | 2024-10-03 10:53 | XMS_ITS | Encounter Summary ---
Author Organization [facility] Address [address] [place] [address] Care Team Providers Care Stone Engraver Name Role Phone Altaf Garcia MD Primary Care Provide r Reason for Referral * Procedure (Routine) - Authorized Specialty Diagnoses / Procedures Referred By Contac t Referred To Contact Diagnoses Right hand pain Procedures Small Joint (Foot, Fingers, Toes) Injection: R ring PIP Tali Shelley PA [address] [facility] [address] [place] [address] Phone: tel: fax: [facility] Referral ID Status Reason Start Date Expiration Date V isits Requested Visits Authorized [id number] Authorized 10/02/2024 11/01/2025 1 1 * Procedure (Routine) - Authorized Specialty Diagnoses / Procedures Referred By Contac t Referred To Contact Diagnoses Right hand pain Procedures Small Joint (Foot, Fingers, Toes) Injection: R long PIP Tali Shelley PA [address] [facility] [address] [place] [address] Phone: tel: fax: [facility] Referral ID Status Reason Start Date Expiration Date V isits Requested Visits Authorized [id number] Authorized 10/02/2024 11/01/2025 1 1 * Diagnostic Imaging (Routine) - Closed Specialty Diagnoses / Procedures Referred By Oh t Referred To Contact Diagnoses Right hand pain Procedures XR Hand Right 3 or More Views Tali Shelley PA [address] [place] [address] Phone: tel: fax: [address] [address] Referral ID Status Reason Start Date Expiration Date Visits Re quested Visits Authorized [id number] Closed 10/01/2024 10/31/2025 1 1 Reason for Visit * Reason Comments Pain Encounter Details Date Type Department Care Team (Late st Contact Info) Description 10/02/2024 8:00 AM CDT Office Visit [facility] Hand Surgery [address] [phone] Tali Shelley PA [address] [place] [phone] Right hand pain (Primary Dx) Social History Tobacco Use Types Packs/Day Years Used Date Smoking Tobacco: Never Comments Unknown Sex and Gender Information Value Date Recorded Sex Assigned at Not on file Legal Sex Female 3:33 PM FRAME RUNNER Gender Identity Female 11/15/2022 2:51 PM CDT Sexual Orientation Choose not to disclose 2022 2:52 PM CDT documented as of this encounter Progress Notes * Tali Shelley PA - 10/02/2024 8:00 AM CDTAssociated Order(s): Small Joint (Foot, Fingers, Toes) Injection: R long PIP; Small Joint (Foot, Fingers, Toes) Injection: R ring PIP Images from the original note were not included. Patient ID: Kelly Herrera is a 63 y.o. female. Visit Date: 10/02/2024 Chief Complaint: Chief Complaint Patient presents with ??? Right Index Finger - Pain HPI: Patient is a 63-year-old female presents today with complaints of right long and right ring finger pain. She has a history of right long and index finger osteoarthritis and last received injections on . Today she complains of pain at the level of the right long and right ring PIP joints. She is requesting repeat injections. Physical Exam: General: A&O x 3, NAD, Well appearing Eyes: EOMs intact. PERRL. Integument: skin is warm and dry. Neuro: CN II-XII grossly intact. Pt gait is stable, balance WNL. Sensation intact. Cardiovascular: 2+ capillary refill to all upper digits bilaterally. On examination of the right upper extremity there is mild enlargement of the right long and right ring PIP joints with mild associated tenderness. There is no erythema. She is able to flex and extendthrough the joints. She is neurovascularly intact to tips of digits. X-rays/Imagin. Right hand pain Assessment/Plan Diagnoses and all orders for this visit: Right hand pain (Primary) - XR Hand Right 3 or More Views; Future Treatment / Plan: Today I injected the patient's right long and right ring PIP joints for treatment of her osteoarthritis and pain. She will follow up as needed and I have asked her to call the office with any questions or concerns. Small Joint (Foot, Fingers, Toes) Injection: R [...] the procedure well with no immediate complications Small Joint (Foot, Fingers, Toes) Injection: R [...] the procedure well with no immediate complications CRIS Odell documented in this encounter Plan of Treatment Pending Results Name Type Priority Associated Diagnoses Date /Time XR Hand Right 3 or More Views Imaging Schedule Routine, Read Routine (OP Routine) Right hand pain 10/02/2024 8:00 AM CDT Scheduled Orders Name Type Priority Associated Diagnoses Orde r Schedule XR Hand Right 3 or More Views Imaging Schedule Routine, Read Routine (OP Routine) Right hand pain Expected: 10/01/2024, Expires: 10/01/2025 documented as of this encounter Procedures Procedure Name Priority Date/Time Associated Diagnosis Comments SMALL JOINT ARTHROCENTESIS Routine 10/02/2024 8:00 AM CDT Right hand pain SMALL JOINT ARTHROCENTESIS Routine 10/02/2024 8:00 AM CDT Right hand pain documented in this encounter Results * Small Joint (Foot, Fingers, Toes) [...] LYNCH IN CLINIC/BEDSIDE ORDERABLES F inal Result documented in this encounter Visit Diagnoses Diagnosis Right hand pain- Primary Pain in soft tissues of limb documented in this encounter Administered Medications Inactive Administered Medications - up to 3 most recent administrations Medication Order MAR Action Action Date Dose Rate Site lidocaine (XYLOCAINE) 10 mg/mL (1 %) injection 1 mL 1 mL, One-Time Injection, Starting on Ofelia 10/02/24 at 0800, For 1 dose, Indications: Administration of Local AnesthesiaIndications:Admi nistration of Local Anesthesia Given 10/02/2024 8:00 AM CDT 1 mL Right Middle Finger lidocaine (XYLOCAINE) 10 mg/mL (1 %) injection 1 mL 1 mL, One-Time Injection, Starting on Ofelia 10/02/24 at 0800, For 1 dose, Indications: Administration of Local AnesthesiaIndications:Admi nistration of Local Anesthesia Given 10/02/2024 8:00 AM CDT 1 mL Right Ring Finger triamcinolone (KENALOG) 40 mg/mL injection 2.5 mg 2.5 mg, One-Time Injection, Starting on Ofelia 10/02/24 at 0800, For 1 doseIndications:Right hand pain Given 10/02/2024 8:00 AM CDT 2.5 mg Right Middle Finger triamcinolone (KENALOG) 40 mg/mL injection 5 mg 5 mg, One-Time Injection, Starting on Ofelia 10/02/24 at 0800, For 1 doseIndications:Right hand pain Given 10/02/2024 8:00 AM CDT 5 mg Right Ring Finger documented in this encounter Discontinued Medications Medication Sig Discontinue Reason Start Date End Da te acetaminophen (OFIRMEV) injection 50 mL (500 mg total) Therapy completed 5 mirabegron ER (MYRBETRIQ) 25 mg tablet extended release 24 hr Take 1 tablet (25 mg total) by mouth Therapy completed 10/02/2024 acetaminophen (OFIRMEV) injection 50 mL (500 mg total) Therapy completed 5 mirabegron ER (MYRBETRIQ) 25 mg tablet extended release 24 hr Take 1 tablet (25 mg total) by mouth Therapy completed 10/02/2024 documented as of this encounter Care Teams Stone Engraver Relationship Specialty Start Date End Date Altaf Garcia MD [address] [place] [address] PCP - General 12/20/18 documented as of this encounter
--- OUTSIDE RECORDS SUMMARY | 2024-10-03 10:53 | XMS_ITS | Encounter Summary ---
Author Organization [facility] Care Team Providers Care Byproducts Supervisor Name Role Phone No, Physician Primary Care Provider [phone] Altaf Garcia MD Primary Care Provide r Encounter Details Date Type Department Care Team (Latest Contact Info) Description 02/14/2017 Orders Only [facility] ProviderAnais MD [address] [place] [address] Social History Tobacco Use Types Packs/Day Years Used Date Smoking Tobacco: Never Assessed Comments Unknown Sex and Gender Information Value Date Recorded Sex Assigned at Not on file Legal Sex Female 3:33 PM QUALITY LIAISON Gender Identity Female 11/15/2022 2:51 PM CDT Sexual Orientation Choose not to disclose 2022 2:52 PM CDT documented as of this encounter Plan of Treatment Not on file documented as of this encounter Procedures Procedure Name Priority Date/Time Associated Diagnosis Comments AUDIOLOGY RECORD 02/14/2017 12:0 0 AM CDT documented in this encounter Results * AUDIOLOGY RECORD (02/14/2017 12:00 AM CDT) Narrative 02/14/2017 12:00 AM CDT Ordered by an unspecified provider. us Historical Provider NURSING COMMUNICATION Fin al Result documented in this encounter Visit Diagnoses Not on filedocumented in this encounter Care Teams Byproducts Supervisor Relationship Specialty Start Date End Date No, Physician PCP - General 11/18/18 12/19/18 Altaf Garcia MD [address] [place] [address] PCP - General 12/20/18 documented as of this encounter
--- OUTSIDE RECORDS SUMMARY | 2024-10-03 10:53 | XMS_ITS | Clinical Summary ---
Author Organization [facility] Address [address] [facility] [place] [address] Care Team Providers Care Slab Off Mill Tender Name Role Phone Altaf Garcia MD Primary Care Provider [phone] Source Comments [facility],non-owned Affiliates and Associated Physician Practices is amultiple site organization consisting of ambulatory clinics and hospital sitesin [place], [place], [place] and [place]. This disclosure is being madepursuant to the Care Everywhere program and may not contain all information available regarding this patient. Last updated 18.[facility] Allergies No known active allergies Medications * Be aware that medications may not be up to date on this document. Alwaysverify current medications with the patient. artificial tears ophthalmic solution Instill 1 (one) drop into right eye 3 times daily as needed 15 mL 04/26/2022 Active amLODIPine (Norvasc) 10 MG tablet Take 1 (one) tablet by mouth once daily 01/24/2022 Active Eliquis 5 MG tablet Take 1 (one) tablet by mouth 2 times daily 03/14/2022 Active hydroCHLOROthia zide (Hydrodiuril) 12.5 MG Take 1 (one) tablet by mouth once daily 02/10/2022 Active metFORMIN (Glucophage) 500 MG tablet Take 1 (one) tablet by mouth once daily 12/14/2021 Active Rybelsus 7 MG tablet Take 1 (one) tablet by mouth once daily 04/19/2022 Active ondansetron (Zofran) 4 MG tablet Take 1 (one) tablet by mouth every 6 hours as needed for Nausea/Vomit ing Active erythromycin (Romycin) 5 MG/GM ophthalmic ointment Instill into right eye 4 times daily 3.5 g 3 06/16/2022 Active gabapentin (Neurontin) 300 MG capsule Take 1 (one) capsule by mouth at bedtime 07/03/2022 Active Active Problems Problem Noted Date Diagnosed Date Orbital floor (blow-out) closed fracture 023 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 Never 06/09/2022 Q2: How many drinks containi ng alcohol do you have on a typical day when you are drinking? Patient does not drink Q3: How often do you have si x or more drinks on one occasion? Never 06/09/2022 Comments Unknown Sex and Gender Information Value Date Recorded Sex Assigned at Female 05/05/2022 2:35 PM BULLDOZER MECHANIC Legal Sex Female 4:44 AM CDT Gender Identity Female 05/05/2022 2:35 PM BULLDOZER MECHANIC Sexual Orientation Straight 05/05/2022 2: 35 PM BULLDOZER MECHANIC Last Filed Vital Signs Vital Sign Reading Time Taken Comments Blood Pressure 132/80 06/09/2022 5:31 PM BULLDOZER MECHANIC Pulse 96 06/09/2022 5:45 PM BULLDOZER MECHANIC Temperature 36.1 C (97 F) 06/09/2022 3:35 PM BULLDOZER MECHANIC Respiratory Rate 14 06/09/2022 5:45 PM BULLDOZER MECHANIC Oxygen Saturation 94% 06/09/2022 6:15 PM BULLDOZER MECHANIC Inhaled Oxygen Concentration - - Weight 74.8 kg (165 lb) 06/09/2022 9:35 AM BULLDOZER MECHANIC Height 154.9 cm (5' 1) 06/09/2022 9:35 AM BULLDOZER MECHANIC Body Mass Index 31.18 06/09/2022 9:35 AM BULLDOZER MECHANIC Plan of Treatment Health Maintenance Due Date Last Done Comments BONE DENSITY TESTING 1960 COLOGUARD (AGES 45-75) - COLON CA SCREENING 1958 COLON MONITORING 1958 COLONOSCOPY - COLON CA SCREENING 1958 CT COLONOGRAPHY - COLON CA SCREENING 1960 Colorectal Cancer Screening 1958 FIT - COLON CA SCREENING 1958 FLEX SIG - COLON CA SCREENING 1958 LIPID TESTING 1960 MAMMOGRAM 1958 PAP SMEAR 1958 HIV SCREENING 1973 HEPATITIS C SCREENING 11/25/1976 PNEUMOCOCCAL VACCINE 50+ (1 of 1 - PCV) 2008 ZOSTER VACCINE (1 of 2) 2008 COVID-19 VACCINE ( - season) 2023 02/09/2022, 08/31/2021, 02/20/2021, Additional history exists DEPRESSION SCREENING 04/23/2024 INFLUENZA VACCINE (Season Ended) 2024 SCREENING FOR DIABETES 06/09/2025 , 06/09/2022, 04/26/2022 DTAP/TDAP/TD VACCINES (2 - Td or Tdap) 04/26/2032 04/26/2022 Respiratory Syncytial Virus (RSV) Vaccine Pt: or over 60 yrs (1 - 1-dose 75+ series) 2033 HEPATITIS B VACCINE Aged Out No longe r eligible based on patient's age to complete this topic HIB VACCINE Aged Out No longer eligi ble based on patient's age to complete this topic HPV VACCINE Aged Out No longer eligi ble based on patient's age to complete this topic MENINGOCOCCAL (Group B) VACCINE SHARED DECISION-MAKING Aged Out No longer eligible based on patient's age to complete this topic MENINGOCOCCAL GROUPS A/C/Y/W VACCINE Aged Out No longer eligible based on patient's age to complete this topic Medical Devices Implanted Type Area Boat Camp Operator Device Identifier Shelf Expiration Date Model / Serial / Lot Plate Preform Contr Edg Seg Orbt Flr Rt Implanted:Qty: 1 on 06/09/2022 by Zee Knutson MD at [facility] Right: Orbital Floor Synthes Maxillof[employer] [id number] / / Screw 1.55mm 2.65mm 4mm Slf hCerise Wilcox Implanted:Qty: 2 on 06/09/2022 by Zee Knutson MD at [facility] Right: Orbital Floor Synthes Maxillofacial [id number] / / Procedures Procedure Name Priority Date/Time Associated Diagnosis Comments GLUCOSE - POINT OF CARE Routine 06/09/2022 9:42 AM BULLDOZER MECHANIC from Last 3 Months or Most Recently Relevant to Health Maintenance Results * (ABNORMAL) GLUCOSE - POINT OF CARE (06/09/2022 9:42 AM BULLDOZER MECHANIC) Glucose WB/POC 148(H) 70 - 115 mg/dL 06/12/2022 5:38 AM BULLDOZER MECHANIC [facility] Specimen Type Venous 06/12/2022 5:38 AM BULLDOZER MECHANIC [facility] Blood BLOOD SPECIMEN / Unknown 06/09/2022 9:42 AM BULLDOZER MECHANIC 06/12/2022 5:38 AM BULLDOZER MECHANIC Zee Knutson MD LAB - POINT OF CARE ORDER TREY Final Result [facility] [address] [place] [address], [facility] [phone] from Last 3 Months or Most Recently Relevant to Health Maintenance Insurance [employer] WORK[employer] PAYOR GENERIC Member Subscriber Plan / Payer (Ef fective 2022-) Name:Erasmo Reynoso Member ID:Not on file Relation to Subscriber:Employee Name:JOSEPH BOLTON Subscriber ID:[id number] (Work) Address: [address] [place] [address] Payer ID:Not on file Group ID:Not on file Type:Worker's Comp Address: [place] Care Teams Slab Off Mill Tender Relationship Specialty Start Date End Date Altaf Garcia MD [address] [id number] PCP - General 09/02/18
--- OUTSIDE RECORDS SUMMARY | 2024-10-03 10:53 | XMS_ITS | Encounter Summary ---
Author Organization [facility] Healthcare Address [address] [place] [address] Care Team Providers Care Engine Repair Supervisor Name Role Phone Altaf Garcia MD Primary Care Provide r Reason for Referral * Diagnostic Imaging (Routine) - Closed Specialty Diagnoses / Procedures Referred By Joseac t Referred To Contact Diagnoses Right hand pain Procedures XR Hand Right 3 or More Views Tali Shelley PA [facility] [address] [place] [address] Phone: tel: fax: [address] [address] Referral ID Status Reason Start Date Expiration Date Visits Re quested Visits Authorized [id number] Closed 10/01/2024 10/31/2025 1 1 Reason for Visit * Diagnostic Imaging (Routine) - Closed Specialty Diagnoses / Procedures Referred By Contac t Referred To Contact Diagnoses Right hand pain Procedures XR Hand Right 3 or More Views Tali Shelley PA [address] [facility] [address] [place] [address] Phone: tel: fax: [address] [place] [address] Referral ID Status Reason Start Date Expiration Date Visits Re quested Visits Authorized [id number] Closed 10/01/2024 10/31/2025 1 1 Encounter Details Date Type Department Care Team (Latest Contact Info) Description 10/02/2024 7:57 AM CDT - 10/02/2024 11:59 PM CDT Hospital Encounter [facility] [address] [place] [address] Right hand pain Discharge Disposition: Discharge to home or self care Social History Tobacco Use Types Packs/Day Years Used Date Smoking Tobacco: Never Comments Unknown Sex and Gender Information Value Date Recorded Sex Assigned at Not on file Legal Sex Female 3:33 PM MATERIALS TECH Gender Identity Female 11/15/2022 2:51 PM CDT Sexual Orientation Choose not to disclose 2022 2:52 PM CDT documented as of this encounter Medications at Time of Discharge metFORMIN XR (GLUCOPHAGE XR) 500 mg 24 hr tablet Take 1 tablet (500 mg total) by mouth daily semaglutide (Ozempic) 0.25 mg or 0.5 mg (2 mg/3 mL) pen injector injection Inject under the skin documented as of this encounter Discharge Disposition Disposition Code Departure Means Destination Discharge to home or self care documented in this encounter Plan of Treatment [...] Read Routine (OP Routine) Right hand pain Once for 1 Occurrences starting 10/02/2024 until 10/02/2024 documented as of this encounter Visit Diagnoses Diagnosis Right hand pain Pain in soft tissues of limb documented in this encounter Care Teams Engine Repair Supervisor Relationship Specialty Start Date End Date Altaf Garcia MD [address] [place] [address] PCP - General 12/20/18 documented as of this encounter
[2024-10-03 12:36] LABS: Anion Gap 11 mmol/L (4-12); Blood Urea Nitrogen 24 mg/dL (7-17); Calcium 9.8 mg/dL (8.4-10.2); Carbon Dioxide 22 mmol/L (22-30); Chloride 107 mmol/L (98-107); Estimated Glomerular Filt Rate > 60; Glucose 102 mg/dL (65-110); Potassium 3.5 mmol/L (3.4-5.0); Sodium 140 mmol/L (137-145)
== END 2024-10-03 10:40 | disposition home or self-care (01) ==
PROVIDERS: Anesthesiology; PCP Emergency Medicine; Visit Provider Podiatrist Foot & Ankle Surgery
DX: R94.31 Abnormal electrocardiogram [ECG] [EKG] (principal); E11.9 Type 2 diabetes mellitus without complications; I10 Essential (primary) hypertension
CPT/HCPCS: 36415; 80048; 93005

== ENCOUNTER 2024-10-10 00:44 | Day surgery (SDC) | payer BC, SELFPAY ==
[2024-10-02 12:28] VITALS: BMI 29.1
--- NOTE | 2024-10-02 13:00 | PC.NURSE ---
Report to the Outpatient Waiting Room, entrance under the green pavilion located off [facility], at time ___6:00AM____ on date ___10/10/24___. Planned Procedure Time: ____7:30AM____.? Time changes happen often and if your time is changed the preop area will call you the afternoon before. - You and your visitor will be asked to self-screen and do not enter if you have any COVID symptoms. Please call surgeon if you need to reschedule. - A mask is optional within the hospital at this time. Patients may have clear liquids (water, carbonated beverages, clear teas, apple juice) until 3 hours prior to surgery (4:30AM) with a maximum of 20 ounces. - No food from midnight until time of surgery and no smoking, or chewing tobacco (or any form of nicotine). No chewing gum, candy or mints. Take only the following medications with a SIP of water on the morning of surgery: ___AMLODIPINE. MAY TAKE MECLIZINE NEEDED. DO NOT STOP ANY OF YOUR OTHER PRESCRIPTION MEDICATIONS PRIOR TO SURGERY EXCEPT THE FOLLOWING Hold all vitamins and supplements for 3 days per anesthesiologist.- LAST DOSE 10/06/24 Medications to discontinue per physician __HOLD ELIQUIS 3 DAYS PRE-OP PER DR KANG Date to take last dose 10/06/24. Please no make-up, nail luxembourger, hairspray, perfume, deodorant, or body powder the day of surgery.? No jewelry (including any body piercings) or valuables the day of surgery, leave them at home.? Please take a shower or bath the night before, or the morning of, surgery with an antibacterial soap.? Wear comfortable, loose fitting clothing.? - Jewelry must be removed prior to entering the operating room.? Rings and piercings that are not removed may be cut off. - The hospital will not accept responsibility for valuables.? - Please leave all valuables, including medications, at home the day of surgery. If you are going home after surgery, a licensed milk tanker driver must drive you home.? - NO public transportation without another adult if you receive anesthesia. - We recommend that an adult stay with you for 24 hours following discharge. - We also recommend that you do not drive, make important decision, drink alcoholic beverages, or take any drugs that were not prescribed by your health care provider for at least 24 hours after your discharge time. Follow any additional instructions given to you from your surgeon. Telephone instructions given to ____PATIENT and asked if any additional questions and then verbalized understanding. Patient advised to call surgeon office or pre surgery nurse liaison [phone] if any additional questions.
[2024-10-10] VITALS (8 sets, daily range): BP systolic 118–140; BP diastolic 70–78; PULSE 65–86; RESP 14–18; TEMP 36.3–36.8; O2SAT 96–100
--- NOTE | ~2024-10-10 | XR_ITS ---
EXAMINATION: XR surgery orthopedic DATE: 10/10/2024 09:28 INDICATION: Right foot surgery TECHNIQUE: 6 fluoroscopic images of the right foot were obtained during procedure performed by Dr. Pricila flowers. Radiologist was not present for the imaging or procedure. The amount of fluoroscopy time used during this procedure was 1.8 minutes. Total DAP was 11.79 mGym^2. COMPARISON: None. FINDINGS: Images demonstrate a subtalar arthrodesis with cannulated compression screw fixation spanning the pos terior facet. There is also been a talonavicular arthrodesis with dorsal staple fixation. Finally the re is a dorsal opening wedge osteotomy at the medial cuneiform with placement of a metal implant. No fractures identified. Mild osteoarthritis at a few of the tarsal metatarsal joints. IMPRESSION: 1. Possible utilized during orthopedic procedure at the right mid and hindfoot as detailed above. See procedure note for further detail. Reviewed, dictated and finalized at location B.
--- OUTSIDE RECORDS SUMMARY | 2024-10-10 00:46 | XMS_ITS | Encounter Summary ---
Author Organization [facility] Address [address] [place] [address] Care Team Providers Care Apprentice Plant Attendant Name Role Phone Altaf Garcia MD Primary Care Provider Encounter Details Date Type Department Care Team (Late st Contact Info) Description 04/26/2022 Ophth Exam [facility] [address] [place] [phone] Landen Helms MD [address] [facility] [address] [place] [address] Social History Tobacco Use Types Packs/Day Years Used Date Smoking Tobacco: Never Assessed Comments Unknown Sex and Gender Information Value Date Recorded Sex Assigned at Female 05/05/2022 2:35 PM SUPERVISOR ROLLING ROOM Legal Sex Female 4:44 AM CDT Gender Identity Female 05/05/2022 2:35 PM SUPERVISOR ROLLING ROOM Sexual Orientation Straight 05/05/2022 2: 35 PM SUPERVISOR ROLLING ROOM documented as of this encounter Plan of Treatment Not on file documented as of this encounter Visit Diagnoses Not on filedocumented in this encounter Care Teams Apprentice Plant Attendant Relationship Specialty Start Date End Date Altaf Garcia MD [address] [place] [address] [address] [place] [address] PCP - General 09/02/18 documented as of this encounter
--- OUTSIDE RECORDS SUMMARY | 2024-10-10 00:47 | XMS_ITS | Encounter Summary ---
Author Organization [facility] Care Team Providers Care Associate Quality Engineer Name Role Phone No, Physician Primary Care Provider [phone] Altaf Garcia MD Primary Care Provide r Encounter Details Date Type Department Care Team (Latest Contact Info) Description 02/14/2017 Orders Only [facility] ProviderAnais MD [address] [place] [address] Social History Tobacco Use Types Packs/Day Years Used Date Smoking Tobacco: Never Assessed Comments Unknown Sex and Gender Information Value Date Recorded Sex Assigned at Not on file Legal Sex Female 3:33 PM TUFTING MACHINE OPERATOR SINGLE NEEDLE Gender Identity Female 11/15/2022 2:51 PM CDT [...] on filedocumented in this encounter Care Teams Associate Quality Engineer Relationship Specialty Start Date End Date No, Physician PCP - General 11/18/18 12/19/18 Altaf Garcia MD [address] [place] [address] PCP - General 12/20/18 documented as of this encounter
--- OUTSIDE RECORDS SUMMARY | 2024-10-10 00:47 | XMS_ITS | Referral Summary ---
Author Organization [facility] Address [address] [place] [phone] Care Team Providers Care Land Clearer Name Role Phone Altaf Garcia MD Primary Care Provide r Encounters Date Type Department Care Team Description 10/02/2024 7:57 AM CDT - 10/02/2024 11:59 PM CDT Hospital Encounter [facility] Diag Imaging [address] [place] [address] Right hand pain Discharge Disposition: Discharge to home or self care 10/02/2024 8:00 AM CDT Office Visit [facility] Hand Surgery [address] [place] [address] [address] [place] [address] Tali Shelley PA Right hand [...] on file Legal Sex Female 3:33 PM BATTERY INSPECTOR Gender Identity Female 11/15/2022 2:51 PM CDT [...] 85.3 kg (188 lb) 05/08/2023 2:53 PM BATTERY INSPECTOR Height 157.5 cm (5' 2) 05/08/2023 2:53 PM BATTERY INSPECTOR Body Mass Index 34.39 05/08/2023 2:53 PM BATTERY INSPECTOR Plan of Treatment Not on file Procedures Procedure Name Priority Date/Time Associated Diagnosis Comments XR HAND RIGHT 3 OR MORE VIEWS Schedule Routine, Read Routine (OP Routine) 10/02/2024 8:00 AM CDT Right hand pain [...] the procedure well with no immediate complications us Tali LYNCH IN CLINIC/BEDSIDE ORDERABLES F inal Result * XR Hand Right 3 or More Views (10/02/2024 8:00 AM CDT) Anatomical Region Laterality Modality Upper Extremities, Hand Right Computed Radiography 10/05/2024 1:54 PM CDT Narrative 10/05/2024 1:55 PM CDT EXAM DESCRIPTION: XR HAND RIGHT 3 OR MORE VIEWS REASON FOR STUDY: pain Increased pain and locking of 3rd and 4th digit for 2 months, no injury TECHNIQUE: There are 3 radiographic view(s) of the right hand . COMPARISON: No prior. FINDINGS: Normal mineralization. No acute fracture or dislocation. Severe osteoarthritis 1st carpometacarpal joint. Mild of the triscaphe joint. Mild of the 1st MCP joint and moderate of the interphalangeal joint of the thumb. Siwt-vw-rbssakup osteoarthritis 2nd and 3rd MCP joints. Mild polyarticular osteoarthritis interphalangeal joints. IMPRESSION: 1. No acute fracture. 2. Polyarticular osteoarthritis of the right hand as above. THIS IS AN ELECTRONICALLY VERIFIED FINAL REPORT 10/05/2024 1:55 PM - Electronically signed by Altaf MILLER T: Report ID: [id number] Reading Location: [id number] Procedure Note Altaf Meeks MD - 10/05/2024 EXAM DESCRIPTION: XR HAND RIGHT 3 OR MORE VIEWS REASON FOR STUDY: pain Increased pain and locking of 3rd and 4th digit for 2 months, no injury TECHNIQUE: There are 3 radiographic view(s) of the right hand . COMPARISON: No prior. FINDINGS: Normal mineralization. No acute fracture or dislocation.Severe osteoarthritis 1st carpometacarpal joint. Mild of the triscaphe joint.Mild of the 1st MCP joint and moderate of the interphalangeal joint of thethumb. Amet-xn-uuiwljyl osteoarthritis 2nd and 3rd MCP joints. Mildpolyarticular osteoarthritis interphalangeal joints. IMPRESSION: 1. No acute fracture. 2. Polyarticular osteoarthritis of the right hand as above. THIS IS AN ELECTRONICALLY VERIFIED FINAL REPORT 10/05/2024 1:55 PM - Electronically signed by Altaf Meeks M.D. MJ T: Report ID: [id number] Reading Location: [place] [address] Tali LYNCH IMG XR PROCEDURES Final Result from Last 3 Months Insurance [email or web address] CHOICE WORKERS COMPENSATION GENERIC ANTHEM ACCESS CHOICE Care Teams Land Clearer Relationship Specialty Start Date End Date Altaf Garcia MD [address] [place] [address] PCP - General 12/20/18
--- OUTSIDE RECORDS SUMMARY | 2024-10-10 00:47 | XMS_ITS | Clinical Summary ---
Author Organization [facility] Address [address] [facility] [place] [address] Care Team Providers Care Community Services Coordinator Name Role Phone Altaf Garcia MD Primary Care Provider [phone] Source Comments [facility],non-owned Affiliates and Associated Physician Practices is amultiple site organization consisting of ambulatory clinics and hospital sitesin [place], [place], [place] and [place]. This disclosure is being madepursuant to the Care Everywhere program and may not contain all information available regarding this patient. Last updated 18.[facility] Allergies No known active allergies Medications * [...] Sex Assigned at Female 05/05/2022 2:35 PM EMT INTERMEDIATE Legal Sex Female 4:44 AM CDT Gender Identity Female 05/05/2022 2:35 PM EMT INTERMEDIATE Sexual Orientation Straight 05/05/2022 2: 35 PM EMT INTERMEDIATE Last Filed Vital Signs Vital Sign Reading Time Taken Comments Blood Pressure 132/80 06/09/2022 5:31 PM EMT INTERMEDIATE Pulse 96 06/09/2022 5:45 PM EMT INTERMEDIATE Temperature 36.1 C (97 F) 06/09/2022 3:35 PM EMT INTERMEDIATE Respiratory Rate 14 06/09/2022 5:45 PM EMT INTERMEDIATE Oxygen Saturation 94% 06/09/2022 6:15 PM EMT INTERMEDIATE Inhaled Oxygen Concentration - - Weight 74.8 kg (165 lb) 06/09/2022 9:35 AM EMT INTERMEDIATE Height 154.9 cm (5' 1) 06/09/2022 9:35 AM EMT INTERMEDIATE Body Mass Index 31.18 06/09/2022 9:35 AM EMT INTERMEDIATE Plan of Treatment Health Maintenance Due Date Last Done Comments BONE DENSITY TESTING 1960 COLOGUARD (AGES 45-75) - COLON CA SCREENING 1958 COLON MONITORING 1958 COLONOSCOPY - COLON CA SCREENING 1958 CT COLONOGRAPHY - COLON CA SCREENING 1958 Colorectal Cancer Screening 1958 FIT - COLON CA SCREENING 1958 FLEX SIG - COLON CA SCREENING 1958 LIPID TESTING 1958 MAMMOGRAM 1958 HIV SCREENING 1973 HEPATITIS C SCREENING 11/25/1976 PAP SMEAR 12/01/1979 PNEUMOCOCCAL VACCINE 50+ (1 of 1 - [...] this topic Medical Devices Implanted Type Area Auto Mechanic Device Identifier Shelf Expiration Date Model / Serial / Lot Plate Preform Contr Edg Seg Orbt Flr Rt Implanted:Qty: 1 on 06/09/2022 by Zee Knutson MD at [facility] Right: Orbital Floor Synthes Maxillofacial [id number] / / Screw 1.55mm 2.65mm 4mm Slf Cherise Wilcox Implanted:Qty: 2 on 06/09/2022 by Zee Knutson MD at [facility] Right: Orbital Floor Synthes Maxillofacial [id number] .[id number] / / Procedures Procedure Name Priority Date/Time Associated Diagnosis Comments GLUCOSE - POINT OF CARE Routine 06/09/2022 9:42 AM EMT INTERMEDIATE from Last 3 Months or Most Recently Relevant to Health Maintenance Results * (ABNORMAL) GLUCOSE - POINT OF CARE (06/09/2022 9:42 AM EMT INTERMEDIATE) Glucose WB/POC 148(H) 70 - 115 mg/dL 06/12/2022 5:38 AM EMT INTERMEDIATE [facility] Specimen Type Venous 06/12/2022 5:38 AM EMT INTERMEDIATE [facility] Blood BLOOD SPECIMEN / Unknown 06/09/2022 9:42 AM EMT INTERMEDIATE 06/12/2022 5:38 AM EMT INTERMEDIATE Zee Knutson MD LAB - POINT OF CARE ORDER TREY Final Result [facility] [address] [place] [address], [facility] [phone] from Last 3 Months or Most Recently Relevant to Health Maintenance Insurance [facility] Address: [facility] [id number] [place] [address] ANTHEM WORKERS [employer] PAYOR GENERIC Member Subscriber Plan / Payer (Ef fective 2022-) Name:Erasmo Reynoso Member ID:Not on file Relation to Subscriber:Employee Name:RUIZASAEL BOLTON Subscriber ID:[id number] (Work) Address: [address] [address] Payer ID:Not on file Group ID:Not on file Type:Worker's Comp Address: [place] Care Teams Community Services Coordinator Relationship Specialty Start Date End Date Altaf Garcia MD [facility] [address] [address] PCP - General 09/02/18
--- OUTSIDE RECORDS SUMMARY | 2024-10-10 00:47 | XMS_ITS | Clinical Summary ---
Author Organization [facility] Address [address] [place] [address] Care Team Providers Care Infrastructure Director Name Role Phone Altaf Garcia MD Primary [...] Description 10/02/2024 8:00 AM CDT Office Visit [facility] Hand Surgery [address] [facility] [address] [place] [address] Tali Shelley PA Right hand pain (Primary Dx) 10/02/2024 7:57 AM CDT - 10/02/2024 11:59 PM CDT Hospital Encounter [facility] Diag Imaging [facility] [place] [address] Right hand pain Discharge Disposition: Discharge to home or self care from Last 3 Months Social History Tobacco Use Types Packs/Day Years Used Date Smoking Tobacco: Never Tobacco Cessation:Counseling Given: Not Answered Comments Unknown Sex and Gender Information Value Date Recorded Sex Assigned at Not on file Legal Sex Female 3:33 PM MATERIALS DIRECTOR Gender Identity Female 11/15/2022 2:51 PM CDT [...] 85.3 kg (188 lb) 05/08/2023 2:53 PM MATERIALS DIRECTOR Height 157.5 cm (5' 2) 05/08/2023 2:53 PM MATERIALS DIRECTOR Body Mass Index 34.39 05/08/2023 2:53 PM MATERIALS DIRECTOR Plan of Treatment Health Maintenance Due Date [...] of the interphalangeal joint of the thumb. Yjvf-vw-exscwxns osteoarthritis 2nd and 3rd MCP joints. Mild polyarticular osteoarthritis interphalangeal joints. IMPRESSION: 1. No acute fracture. 2. Polyarticular osteoarthritis of the right hand as above. THIS IS AN ELECTRONICALLY VERIFIED FINAL REPORT 10/05/2024 1:55 PM - Electronically signed by Altaf MILLER T: Report ID: [id number] Reading Location: [id number] Procedure Note Altaf Meeks MD - 10/05/2024 [...] moderate of the interphalangeal joint of thethumb. Coug-vi-npifwpyy osteoarthritis 2nd and 3rd MCP joints. Mildpolyarticular osteoarthritis interphalangeal joints. IMPRESSION: 1. No acute fracture. 2. Polyarticular osteoarthritis of the right hand as above. THIS IS AN ELECTRONICALLY VERIFIED FINAL REPORT 10/05/2024 1:55 PM - Electronically signed by Altaf MILLER T: Report ID: [id number] Reading Location: [id number] Tali LYNCH IMG XR PROCEDURES Final Result from Last 3 Months Insurance [facility] ACCESS CHOICE ANTHEM ACCESS CHOICE WORKERS COMPENSATION GENERIC ANTHEM ACCESS CHOICE Care Teams Infrastructure Director Relationship Specialty Start Date End Date Altaf Garcia MD [address] [place], [place] [id number] PCP - General 12/20/18
--- NOTE | 2024-10-10 06:47 | P.PNAN_ITS ---
Anes - Initial Pre Proc Eval Procedure: Operation Date: 10/10/24 07:30 Proposed Procedures p Hardware Removal Right Foot, Talar Navicular Joint Fusion Right Foot, Subtalar Joint Fusion Right Foot, Possible Bakari Osteotomy Right Foot - Ellis Tejada Jr., JAQUAN Date/Time: 10/10/24 06:47 Surgeon: Ellis Tejada Jr., DPM Pre Op Diagnosis: Talartarsal Instab Rt Foot, Arthritis Rt Foot Patient Data Age: 63 Gender: F Height: 1.55 m Weight: 70 kg Allergies Allergy/AdvReac Type Severity Reaction Status Date / Time Euvioax-EPV-WqY Reductase AdvReac Intermediate LEG CRAMPS Verified 10/09/24 08:32 Inhibitor Home Medications ?Medication ?Instructions ?Recorded ?Confirmed ?Type meclizine 25 mg tablet 25 mg PO TID PRN dizziness #20 tabs 02/11/24 10/09/24 Rx alendronate 70 mg tablet (Fosamax) 70 mg PO WEEKLY #12 tabs 03/25/24 10/09/24 Rx apixaban 5 mg tablet (Eliquis) See Rx Instructions .Route 04/18/24 10/09/24 Rx .COMPLEX #180 tabs cholecalciferol (vitamin D3) 1,250 1,250 mcg PO WEEKLY #12 caps 07/11/24 10/09/24 Rx mcg (50,000 unit) capsule metformin 500 mg tablet,extended See Rx Instructions .Route 07/11/24 10/09/24 Rx release 24 hr .COMPLEX #90 tabs semaglutide 2 mg/dose (8 mg/3 mL) 2 mg (0.75 mL) subcut WEEKLY #3 mL 08/07/24 0 10/09/24 Rx subcutaneous pen injector (Ozempic) amlodipine 10 mg tablet See Rx Instructions .Route 09/23/24 10/09/24 Rx .COMPLEX #90 tabs hydrochlorothiazide 12.5 mg tablet See Rx Instructions .Route 09/23/24 10/09/24 Rx .COMPLEX #90 tabs Patient hx anesthesia problems: post op nausea/vomiting Family hx anesthesia problems: none Results Review: All pre-operative results and documents have been reviewed as part of the pre- operative evaluation. [facility] Past Medical History Medical History (Updated 10/09/24 @ 09:01 by Hannah A. Bosaw, ELEMENTARY SCHOOL TEACHER'S AIDE-C) Diverticulitis Facial bones, closed fracture DVT (deep venous thrombosis) Swelling Leg pain Type 2 diabetes mellitus without complication, without long-term current use of insulin Posterior tibial tendon dysfunction (PTTD) of right lower extremity Fatigue Encounter for screening mammogram for malignant neoplasm of breast Chronic sinusitis Chest pain Vulvar irritation Vitamin D deficiency Upper abdominal pain Unspecified urinary incontinence Type 2 diabetes mellitus with other diabetic arthropathy Seasonal allergies Right foot pain Post-menopause Peripheral edema Murmur, cardiac Mixed incontinence Mixed hyperlipidemia Metatarsalgia of left foot Lipoma of extremity Left foot pain Hot flashes Flat foot [pes planus] (acquired), unspecified foot Essential (primary) hypertension Encounter for screening for malignant neoplasm of colon Encounter for screening for malignant neoplasm of cervix DM type 2 with diabetic mixed hyperlipidemia Calculus of gallbladder with chronic cholecystitis without obstruction Atypical chest pain Acute right ankle pain Tendinitis of left triceps Contusion of right elbow Weight gain Left knee DJD Right knee DJD Right knee pain Left knee pain Urinary urgency Other screening mammogram Encounter for gynecological examination (general) (routine) without abnormal findings Diabetes Hepatitis High cholesterol Hypertension Surgical History Surgical History History of facial surgery History of urethral stent Right side 10/13/2022 per patient questionnaire History of laparoscopic cholecystectomy History of foot surgery Hx of cholecystectomy History of ankle surgery History of dilation and curettage Rush teeth removed History of tonsillectomy Family History Family History Mother Family history of gastrointestinal disorder Family history of osteoarthritis Family history of irritable bowel syndrome Diabetes mellitus Sibling Family history of diabetes mellitus in first degree relative Diabetes mellitus Hypertension, Onset Age: 40 Patient's sister is in good health Family history of malignant neoplasm of brain Father Diabetes mellitus Hypertension Patient's father is in good health Family history of cardiovascular disease Family history of genitourinary disease Other Family history of malignant neoplasm High cholesterol Social History Social History Smoking status: Never smoker Second hand tobacco smoke exposure: No Alcohol intake: current Substance use: never Do You Feel Safe in your Home?: Yes Lack of Transportation: No Lack of Food: Never True Current Housing: I Have Housing Concerned About Future Housing: No Difficulty Paying Gas/Electric Bills: No Difficulty Paying for Meds: No Currently Unemployed: No Education: Master's Degree or Higher Difficulty w/ Childcare or Family Care: No Living arrangements: with family Additional living arrangements comments: MOLLY Occupation/Education: retired Additional occupation/education comments: Retired Pharmacist. Gender identity (if verbalized by the patient): Female Sexual Orientation (if Verbalized by the Patient): Straight or Heterosexual Spiritual care concerns: No Agree to blood products: Yes Anes - Eval Final PreProcedure Day of Procedure 10/10/24 06:47 Patient weight: overweight Heart: regular rate and rhythm Lungs: clear to auscultation Airway: Mallampati scale class II Neurological: alert and oriented Last oral intake: >/= 8 hours ASA classification: III Emergent: no Anesthetic plan: proceed Anesthesia type and monitoring: general LMA and standard monitoring Results Review: All pre-operative results and documents have been reviewed as part of the pre- operative evaluation. Informed Consent: The patient's anesthetic plan and its attendant risks and benefits were discussed with the patient/family/POA. Questions were solicited and answers provided to the satisfaction of the patient/family/POA.
[2024-10-10] MEDS: SCOPOLAMINE 1 MG PATCH 1 PATCH TRANSDERM (07:00)
[2024-10-10] MEDS: LACTATED RINGERS 1,000 ML 30 ML IV CONT ×2 (07:00→09:53)
[2024-10-10 07:03] LABS: Glucose Point of Care 115 mg/dl (65-105)
--- NOTE | 2024-10-10 07:04 | WPDANESPNB ---
Anes - Peripheral Nerve Block Date/Time: 10/10/24 07:04 I have discussed with the patient/family/POA the placement of a peripheral nerve block for post-operative pain management, including associated risks, benefits, complications, and side effects. Alternative methods of post-operative analgesia were detailed. Questions were solicited and answers provided to the satisfaction of the patient/family/POA. Time-Out: A pre-procedural Time-Out was completed immediately before starting the procedure and confirmed: Patient Identification, Site, Procedure, Patient Position and the Availability of Requisite Equipment. Clinical Indications: Acute post-operative pain management requested by the operative surgeon. Nerve Block Insertion Note Anes-nerve block: posterior fossa sciatic right and adductor canal right Patient position: supine (for adductor canal) and other (right lateral for popliteal) Skin prep: chlorhexidine Needle: 22 gauge, stimulating, insulated echogenic needle. Needle length: 80 mm Technique: nerve stimulation lost at (mA) (for popliteal lost at 0.2) and ultrasound Injectate: bupivacaine 0.5% with epi 5 mcg/ml (20 mL for popliteal, 10 mL for adductor canal (no epi)) Observations: tolerated well Complications: none Procedure start time:: 717 Procedure end time:: 723
--- NOTE | 2024-10-10 07:05 | WPDHPUPDATE1 ---
History and Physical Update Update Date/Time: 10/10/24 07:05 History and Physical has been reviewed, including an updated exam of the patient. There are NO changes in the patient's condition. Risks, benefits, and alternatives have been discussed and questions answered. Patient agrees to proceed with procedure.
[2024-10-10] MEDS: ceFAZolin 2 GM/D5W 50 ML 2 GM/50 ML BAG IVPB (07:30)
--- NOTE | 2024-10-10 09:49 | W.PM.PROC2 ---
Procedure Note - Detailed Date of Procedure 10/10/24 Pre-op Diagnosis 1. 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 Painful hardware right foot 4. Gastroc Soleus equinus right foot Rt Foot Post-op Diagnosis Same Procedure Performed 1. Subtalar joint arthrodesis right foot 2. Talar navicular joint arthrodesis right foot 3. Removal of hardware right foot 4. Tendo Achilles Lengthening right leg 5. Cotton Osteotomy right foot Surgeon Ellis Tejada Jr., DPM Anesthesia General and Regional Indications Painful right hindfoot Findings Significant joint degeneration right subtalar joint and right talar navicular joint right foot Description of Procedure PROCEDURE IN DETAIL: Under mild sedation, the patient was brought into the operating room and placed on the operating table in the supine position. A pneumatic calf tourniquet was placed about the patient's right calf. Following general anesthesia and a previous popliteal fossa block, the foot and ankle was then scrubbed, prepped, and draped in the usual aseptic manner. An Esmarch bandage was then used to exsanguinate the patient's foot and ankle and the pneumatic calf tourniquet was then inflated to 250 mmHg. Surgery began in the following manner: I made 3 small 1cm incisions superior to the calcaneus extending proximally at 2cm intervals until adequate dorsiflexion, greater than 90 degrees were maintained. Attention was directed to the dorsal medial aspect of the talonavicular joint of the left foot where a 6 cm longitudinal incision was made in between the extensor hallucis longus tendon and the tibialis anterior tendon over the dorsal aspect of the talus and navicular bone. The dissection was continued deep down through the subcutaneous tissues using sharp and blunt dissection. All bleeders were ligated and cauterized as necessary. At this point, the talonavicular joint capsule was exposed and severed with a 15 blade. Next, 2 Steinmann pins were placed along the dorsal aspect of the talus and navicular bones and a joint distractor was used to open the talonavicular joint exposing the joint completely. Cartilage degeneration was noted. Curettes, curved osteotomes were used to to resect the remaining articular cartilage. A small osteotome was used to fenestrate the subchondral bone and then a 2.5 mm drill was used to fenestrate in order to promote fusion across the talonavicular joint. At this point, the joint distractor was removed, and attention was directed to the lateral aspect of the hindfoot. An incision was made starting just distal to the lateral malleolus and extending towards the base of the 4th metatarsal. The incision was continued deep down through the subcutaneous tissues using sharp and blunt dissection. All bleeders were ligated and cauterized as necessary. At this point, the sinus tarsi was explored. A rongeur was used to resect all sinus tarsi contents and fat significant synovial tissue was debrided. The talocalcaneal ligament was cut. The extensor digitorum brevis muscle was detached form its origin to expose the calcaneal cuboid joint. The dissection was continued deep down through the subcutaneous tissues using sharp and blunt dissection both anterior and posterior to the sinus tarsi area. Furthermore, the dissection was continued posteriorly where the peroneal tendon sheath was incised exposing the peroneal tendons posteriorly. The calcaneofibular ligament was left intact. Next, a joint distractor was positioned along the lateral aspect of the talus and lateral aspect of the calcaneus. Two large Steinmann pins were placed from lateral to medial across the lateral aspect of the talar body and lateral aspect of the calcaneal body. A Hyrocure subtalar implant was visualized in the sinus tarsi and removed in toto and placed on the back table. The joint distractor was then used to open the subtalar joint exposing the cartilage and subchondral bone. A Curette was used to resect all cartilage from the subtalar joint. Next, a small osteotome and mallet were used to fenestrate the posterior facet, floor of the sinus tarsi as well as the anterior and medial facets of the subtalar joint. Next, a 2.0 mm drill bit was used to also fenestrate the subchondral bone. Finally, a curette was also used to make sure that there is no remaining cartilage noted. None was noted. The wound site was flushed with copious amounts of sterile saline. At this point, the subtalar joint was held in a rectus to slightly valgus position approximately 2 degrees. Next, a large guide wire for the Arthrex 7.0 Headless cannulated screw system was used to hold the subtalar joint in the slight 2-degree valgus position and directed from the dorsal medial aspect of the neck of the talus to near the tuber of the calcaneus posterolaterally. A calcaneal axial view was used to make sure that the Steinmann pin was positioned within the constraints of the calcaneus and that there was good apposition of the subtalar joint. At this point, a 7.0 mm by 60mm Arthrex headless compression screw was driven from dorsal to plantar across the subtalar joint with excellent compression noted and felt. The talonavicular joint was appropriately manipulated until the talar head was completely covered by the navicular. Two Arthrex 20mm by 156mm Dynanite Super Mx [place] were placed along the dorsal lateral aspect and dorsal medial aspect of the joint with excellent compression noted. The first ray was still slightly elevated with the subtalar joint fixed to slight valgus. I made the decision to plantar flex the 1st ray with a Cotton osteotomy. Next stage, the medial incision was extended distally to the central aspect of the medial cuneiform where I made a dorsal osteotomy and introduced a 4.5mm by 16mm Arthrex BioSync Cotton Wedge. At this point the forefoot was neutral. Next, the periosteal tissues were reapproximated and coapted. The subcutaneous medial structures were reapproximated and coapted with 3-0 Vicryl and the skin was reapproximated with 4-0 Monocryl. Fluoroscopy was finally used to make sure that all screws and jose were appropriately aligned and oriented and that the hardware was appropriately aligned and oriented. Excellent reduction of the deformity was noted clinically as well as radiographically. Now the medial arch height has been maintained. The too many toe sign has been reduced to normal. Next, lateral closure began in a layered fashion, the Extensor digitorum brevis muscle was repositioned to its origin with 3-0 Vicryl. Next, the subcutaneous structures were reapproximated and coapted utilizing 4-0 Vicryl in simple interrupted suture technique. Finally, the skin was reapproximated and coapted utilizing a 4-0 Monocryl in a running subcuticular suture fashion technique. Upon completion of the procedure, the incision was dressed with Steri-Strips [id number], Adaptic, 4x4s, Kerlix, and Coban. The pneumatic calf tourniquet was then deflated and a prompt hyperemic response was noted to all digits of the affected foot. A posterior splint was then applied to the involved lower extremity. The patient did very well with the procedure and the anesthesia. She was transferred to the recovery room with vital signs stable and vascular status intact to all toes of the right foot. Following a period of postoperative monitoring, the patient will be discharged home on the following written and oral postoperative instructions: 1. Keep the dressing clean, dry, and intact. Use a cast protector bag with showering. 2. The patient to be strictly nonweightbearing with knee scooter, crutches or walker. 3. Patient should ice and elevate the foot when at rest for the next 3 days. 4. Patient should be on bed rest for 3 days with bathroom privileges only, utilizing her knee scooter at all times. The patient should contact Dr. Tejada for all postop care if any problems arise. Prescriptions were written for pain medication Percocet 5/325 dispensed 40 to be taken 1 p.o. q.4-6 hours as needed for severe pain. Furthermore Xarelto 10 mg was also prescribed to be taken 1 p.o. daily starting 24 hours after surgery to prevent DVT followed by one 325 mg aspirin until walking is re-initiated, which will approximately be 8 weeks postop. Implants Arthrex Two 20mm x15mm Dynanite Super MX jose Arthrex BioSync Cotton Wedge 16mm by 4.5mm Arthrex 7.0mm by 60mm Headless Screw Estimated Blood Loss 1 Drains No Packing No Pathology None sent Complications No immediate complications Condition Stable Disposition Same day
[2024-10-10 10:09] LABS: Glucose Point of Care 142 mg/dl (65-105)
== END 2024-10-10 11:46 | disposition home or self-care (01) ==
PROVIDERS: PCP Emergency Medicine; Visit Provider Podiatrist Foot & Ankle Surgery
PROC: (CPT 28750; principal; 2024-10-10 07:30)
DX: M25.374 Other instability, right foot (principal); M19.071 Primary osteoarthritis, right ankle and foot; T84.84XA Pain due to internal orthopedic prosthetic devices, implants and grafts, initial encounter; M79.671 Pain in right foot; Y83.1 Surgical operation with implant of artificial internal device as the cause of abnormal reaction of the patient, or of later complication, without mention of misadventure at the time of the procedure; M21.6X1 Other acquired deformities of right foot; E11.9 Type 2 diabetes mellitus without complications
CPT/HCPCS: 28725; 28740; 28304; 82948; 99199; A9270; C1769; J0690; J1100; J2250; J2405; J2704; J3010; J7120